=== PATIENT | male | born 1995 | race Caucasian/White ===

== ENCOUNTER 2021-10-27 00:37 | Emergency (ER) | payer OTHER ==
[2021-10-27] MEDS ORDERED: Ondansetron 4 MG Tab.DIS PO ONE (00:38)
[2021-10-27] MEDS ORDERED: Sodium Chloride 0.9% 10 ML Syringe FLUSH PRN (00:47)
[2021-10-27] MEDS ORDERED: Ondansetron 4 MG/2 ML SDV IVPUSH ONE (00:47)
[2021-10-27] MEDS ORDERED: Atropine/Diphenoxylate 0.025-2.5 MG Tab PO ONE (00:48)
[2021-10-27] MEDS ORDERED: Ketorolac 30 MG/ML SDV IVPUSH ONE (00:48)
[2021-10-27] MEDS ORDERED: Sodium Chloride 0.9% 1,000 ML IV SCH (01:00)
[2021-10-27 01:18] LABS: ESTIMATED GFR 79 mL/min (>60)
[2021-10-27] MEDS ORDERED: hydrOXYzine HCl 50 MG/ML SDV IM ONE (02:36)
[2021-10-27 05:37] VITALS: BP 117/54; PULSE 76
== END 2021-10-27 02:55 | disposition home or self-care (01) ==
LOC: FB.ED 00:37
DX: R19.7 Diarrhea, unspecified (principal); R11.10 Vomiting, unspecified
CPT/HCPCS: 36415; 80053; 85025; 96361; 96372; 96374; 99284; A9270; J2405; J3410; J3490; J7030; Q0162